=== PATIENT | female | born 1975 | race Caucasian/White ===

== ENCOUNTER 2017-01-31 21:29 | Emergency (ER) | payer OTHER ==
[~2017-01-31 21:29] MED LIST: ALLEGRA 180MG180 MG PO; ANTIVERT 25MG25 MG PO; CIPRO 250MG TA250 MG PO; CLARITIN; COUMADIN 77.5 MG/TAB PO; FLONASE NASAL S16 GM NS; LORTAB 5/500 501 TAB PO; MUCINEX 60600 MG/TAB PO; NO HOME MEDICATIONS; PERCOCET 325 MG1 TA2 PO; PERCOCET 5/321 UDTAB PO; PHENERGAN 25 TA25 MG PO; PHENERGAN25 MG RC; PRIL40; ROXICODONE 55 MG/TAB PO; SINGULAIR 110 MG/TAB PO; SPRINTEC 35 MCG1 TAB PO; TYLENOL 500MG500 MG PO; ULTRAM 50MG TAB50 MG PO; [UNRECOGNIZED DRUG - OTHER]; [UNRECOGNIZED DRUG - REMARK]
[2017-01-31 21:31] VITALS: TEMP 96.8
[2017-01-31 22:07] LABS: BASO % 0.4 % (0.0-2.0); EOS # 0.3 (0.0-0.7); EOS % 2.5 % (0-4.0); GRAN % 62.3 % (42.2-75.2); HEMOGLOBIN 12.2 g/dl (12.5-16.0); LYMPH # 3.4 (1.2-3.4); LYMPH % 30.1 % (20.0-51.0); MEAN CELL VOLUME 90 fl (80.0-100.0); MEAN CORPUSCULAR HEMOGLOBIN 29 pg (27.0-31.0); MEAN CORPUSCULAR HGB CONC 32 g/dl (33.0-37.0); MEAN PLATELET VOLUME 10.1 fl (7.4-10.4); MONO # 0.5 (0.1-0.6); MONO % 4.5 % (1.7-9.3); PLATELET COUNT 353 K/mm3 (130-400); RED BLOOD COUNT 4.21 M/mm3 (4.10-5.30); REDCELL DISTRIBUTION WIDTH-CV 14.3 % (11.5-14.5); WHITE BLOOD COUNT 11.2 K/mm3 (4.8-10.8)
[2017-01-31 22:16] LABS: ALANINE AMINOTRANSFERASE 34 U/L (9-52); ALBUMIN 4.1 gm/dL (3.5-5.0); ALKALINE PHOSPHATASE 72 U/L (50-136); ANION GAP 12 mmol/L (7-16); BILIRUBIN,TOTAL 0.3 mg/dL (0.0-1.0); BLOOD UREA NITROGEN 14 mg/dL (7-17); CALCIUM 9.1 mg/dL (8.4-10.2); CARBON DIOXIDE 21 mmol/L (22-30); CHLORIDE 105 mmol/L (98-107); CREATININE, serum 0.85 mg/dL (0.52-1.25); GLUCOSE 106 mg/dL (74-106); LIPASE 64 U/L (23-300); POTASSIUM 3.8 mmol/L (3.4-5.0); SODIUM 139 mmol/L (137-145); TOTAL PROTEIN 7.4 gm/dL (6.4-8.2)
[2017-01-31 22:20] LABS: PH 5 (5-8); SQUAMOUS EPITHELIAL 0-2 /hpf; URINE APPEARANCE Clear; URINE BACTERIA None Seen /hpf; URINE BILIRUBIN Negative (NEGATIVE); URINE BLOOD 1+ (NEGATIVE); URINE COLOR Straw; URINE GLUCOSE Negative (NEGATIVE); URINE KETONE Negative (NEGATIVE); URINE RBC 0-2 /hpf; URINE UROBILINOGEN Negative (NEGATIVE); URINE WBC 0-2 /hpf
[2017-01-31 22:24] LABS: INFLUENZA B NEGATIVE
[2017-01-31 22:30] LABS: TROPONIN-I < 0.012 ng/mL (0.000-0.034)
[2017-02-01 00:01] LABS: INR 1.8 (0.8-3.0); PROTHROMBIN TIME 20.4 SECONDS (9.7-12.8)
[2017-02-01 00:39] VITALS: BP 129/72; PULSE 67
== END 2017-02-01 00:38 | disposition home or self-care (01) ==
LOC: COL.ER 21:29
PROVIDERS: Emergency Medicine
DX: J06.9 Acute upper respiratory infection, unspecified (principal); R55 Syncope and collapse; E11.9 Type 2 diabetes mellitus without complications; J45.909 Unspecified asthma, uncomplicated; Z86.718 Personal history of other venous thrombosis and embolism; Z79.84 Long term (current) use of oral hypoglycemic drugs; Z79.01 Long term (current) use of anticoagulants
CPT/HCPCS: J2405; J7030

== ENCOUNTER → 2017-07-03 | Outpatient (CLI) | payer OTHER | LOC: MC.RAD 07:36 | DX: N64.4 Mastodynia (principal) ==

== ENCOUNTER 2017-11-30 21:53 | Emergency (ER) | payer OTHER ==
[~2017-11-30] VITALS: Ht 162.6 cm; Wt 104.8 kg
[2017-11-30 22:02] VITALS: TEMP 97.8
[2017-11-30 22:51] LABS: BASO # 0.1 (0.0-0.2); BASO % 0.6 % (0.0-2.0); EOS # 0.2 (0.0-0.7); GRAN # 6.3 (1.4-6.5); GRAN % 57.8 % (42.2-75.2); HEMATOCRIT 35.9 % (37.0-47.0); HEMOGLOBIN 11.9 g/dl (12.5-16.0); LYMPH # 3.7 (1.2-3.4); LYMPH % 33.8 % (20.0-51.0); MEAN CELL VOLUME 86 fl (80.0-100.0); MEAN CORPUSCULAR HEMOGLOBIN 28 pg (27.0-31.0); MEAN CORPUSCULAR HGB CONC 33 g/dl (33.0-37.0); MEAN PLATELET VOLUME 10.3 fl (7.4-10.4); MONO # 0.6 (0.1-0.6); MONO % 5.3 % (1.7-9.3); PLATELET COUNT 358 K/mm3 (130-400); REDCELL DISTRIBUTION WIDTH-CV 13.9 % (11.5-14.5)
[2017-11-30 22:55] LABS: INR 2.3 (0.8-3.0); PROTHROMBIN TIME 26.6 SECONDS (9.7-12.8)
[2017-11-30 22:57] LABS: PARTIAL THROMBOPLASTIN TIME 34.3 SECONDS (26.0-37.0)
[2017-11-30 22:58] LABS: D-DIMER < 200.00 ng/mLDDu (200-230)
[2017-11-30 23:02] LABS: ALANINE AMINOTRANSFERASE 49 U/L (9-52); ALBUMIN 3.9 gm/dL (3.5-5.0); ALKALINE PHOSPHATASE 65 U/L (50-136); ANION GAP 12 mmol/L (7-16); AST,SGOT 38 U/L (15-37); BILIRUBIN,TOTAL 0.2 mg/dL (0.0-1.0); BLOOD UREA NITROGEN 11 mg/dL (7-17); CALCIUM 8.6 mg/dL (8.4-10.2); CARBON DIOXIDE 24 mmol/L (22-30); CHLORIDE 103 mmol/L (98-107); CREATININE, serum 0.76 mg/dL (0.52-1.25); GLUCOSE 98 mg/dL (74-106); SODIUM 139 mmol/L (137-145); TOTAL PROTEIN 7.1 gm/dL (6.4-8.2)
[2017-11-30 23:13] LABS: TROPONIN-I < 0.012 ng/mL (0.000-0.034)
[2017-12-01] MEDS ORDERED: K-DUR20 MEQ PO (00:14)
[2017-12-01 00:25] VITALS: BP 105/54; PULSE 63
== END 2017-12-01 00:26 | disposition home or self-care (01) ==
LOC: COL.ER 21:53
PROVIDERS: Emergency Medicine
DX: M79.605 Pain in left leg (principal); R07.89 Other chest pain; R55 Syncope and collapse; R05 Cough; E11.9 Type 2 diabetes mellitus without complications; J45.909 Unspecified asthma, uncomplicated; F32.9 Major depressive disorder, single episode, unspecified; F90.9 Attention-deficit hyperactivity disorder, unspecified type; D68.51 Activated protein C resistance; Z86.718 Personal history of other venous thrombosis and embolism; Z79.891 Long term (current) use of opiate analgesic; Z79.01 Long term (current) use of anticoagulants
CPT/HCPCS: J2405; J7030

== ENCOUNTER → 2018-01-16 | Outpatient (CLI) | payer OTHER ==
[~2018-01-16] MED LIST changes: +K-DUR20 MEQ PO
== END ==
LOC: COL.CARD 09:39
DX: R55 Syncope and collapse (principal)

== ENCOUNTER 2018-01-21 14:34 | Emergency (ER) | payer OTHER ==
[~2018-01-21] VITALS: Ht 162.6 cm; Wt 118.2 kg
[2018-01-21 14:35] VITALS: TEMP 97.6
[2018-01-21 14:52] LABS: BASO # 0.1 (0.0-0.2); BASO % 0.6 % (0.0-2.0); EOS # 0.4 (0.0-0.7); EOS % 3.2 % (0-4.0); GRAN # 6.3 (1.4-6.5); GRAN % 57.7 % (42.2-75.2); HEMOGLOBIN 11.8 g/dl (12.5-16.0); LYMPH # 3.6 (1.2-3.4); LYMPH % 33.1 % (20.0-51.0); MEAN CELL VOLUME 89 fl (80.0-100.0); MEAN CORPUSCULAR HEMOGLOBIN 29 pg (27.0-31.0); MEAN CORPUSCULAR HGB CONC 32 g/dl (33.0-37.0); MEAN PLATELET VOLUME 10.5 fl (7.4-10.4); MONO # 0.6 (0.1-0.6); MONO % 5.1 % (1.7-9.3); PLATELET COUNT 321 K/mm3 (130-400); RED BLOOD COUNT 4.13 M/mm3 (4.10-5.30)
[2018-01-21 14:59] LABS: ALANINE AMINOTRANSFERASE 46 U/L (9-52); ALKALINE PHOSPHATASE 69 U/L (50-136); ANION GAP 15 mmol/L (7-16); AST,SGOT 60 U/L (15-37); BILIRUBIN,TOTAL 0.3 mg/dL (0.0-1.0); BLOOD UREA NITROGEN 10 mg/dL (7-17); CALCIUM 8.5 mg/dL (8.4-10.2); CARBON DIOXIDE 19 mmol/L (22-30); CHLORIDE 104 mmol/L (98-107); CREATININE, serum 0.82 mg/dL (0.52-1.25); GLUCOSE 113 mg/dL (74-106); INR 1.8 (0.8-3.0); POTASSIUM 3.7 mmol/L (3.4-5.0); SODIUM 139 mmol/L (137-145); TOTAL PROTEIN 7.5 gm/dL (6.4-8.2)
[2018-01-21 15:01] LABS: PARTIAL THROMBOPLASTIN TIME 44.3 SECONDS (26.0-37.0)
[2018-01-21 15:03] LABS: HEMATOCRIT 36.9 % (37.0-47.0)
[2018-01-21] MEDS ORDERED: TOPAMAX50 MG PO (15:07)
[2018-01-21] MEDS ORDERED: GLUCOPHAGE XR500 M1 PO (15:07)
[2018-01-21] MEDS ORDERED: LASIX 40MG TABL40 MG PO (15:08)
[2018-01-21] MEDS ORDERED: RITALIN LA20 MG PO (15:08)
[2018-01-21] MEDS ORDERED: MIDAMOR 5MG TAB5 MG PO (15:08)
[2018-01-21] MEDS ORDERED: ZOFRAN 4MG T4 MG/TAB PO (15:09)
[2018-01-21] MEDS ORDERED: ANTIVERT 12.512.5 MG PO (15:10)
[2018-01-21] MEDS ORDERED: PROAIR HFA0.09 MG/AC IH (15:10)
[2018-01-21] MEDS ORDERED: ADVIL200 MG PO (15:11)
[2018-01-21 15:14] LABS: TROPONIN-I < 0.012 ng/mL (0.000-0.034)
[2018-01-21 17:13] VITALS: BP 111/62; PULSE 61
== END 2018-01-21 17:22 | disposition home or self-care (01) ==
LOC: COL.ER 14:34
PROVIDERS: Family Medicine
DX: R07.89 Other chest pain (principal); R55 Syncope and collapse; E11.9 Type 2 diabetes mellitus without complications; J45.909 Unspecified asthma, uncomplicated; Z86.2 Personal history of diseases of the blood and blood-forming organs and certain disorders involving the immune mechanism; Z79.51 Long term (current) use of inhaled steroids; Z79.01 Long term (current) use of anticoagulants; Z79.84 Long term (current) use of oral hypoglycemic drugs
CPT/HCPCS: J0595; J2060

== ENCOUNTER 2018-02-22 08:04 | Outpatient (CLI) | payer OTHER ==
[~2018-02-22] VITALS: Ht 162.7 cm; Wt 117.7 kg
[~2018-02-22 08:04] MED LIST changes: +ADVIL200 MG PO; +ANTIVERT 12.512.5 MG PO; +COUMADIN 1010 MG/TAB PO; -COUMADIN 77.5 MG/TAB PO; +GLUCOPHAGE XR500 M1 PO; +LASIX 40MG TABL40 MG PO; +MIDAMOR 5MG TAB5 MG PO; +PROAIR HFA0.09 MG/AC IH; +RITALIN LA20 MG PO; +TOPAMAX50 MG PO; +ZOFRAN 4MG T4 MG/TAB PO
[2018-02-22] MEDS ORDERED: ALDACTONE 25MG25 M1 PO (09:07)
[2018-02-22] MEDS ORDERED: RITALIN 20M20 MG/TAB PO (09:09)
[2018-02-22] MEDS ORDERED: K-DUR20 MEQ PO (09:10)
[2018-02-22] MEDS ORDERED: TOPAMAX50 MG PO (09:11)
[2018-02-22] MEDS ORDERED: MULTIPLE VITAMI1 CAP PO (09:12)
[2018-02-22] MEDS ORDERED: MAG-OX 400400 MG/TAB PO (09:12)
[2018-02-22] MEDS ORDERED: ALLEGRA ALLERG180 MG PO (09:12)
[2018-02-22] MEDS ORDERED: EPIPEN 2-PAK1 MG/ML IM (09:13)
[2018-02-22 09:44] VITALS: BP 125/58; PULSE 58; TEMP 97.8
[2018-02-22] MEDS ORDERED: CLEOCIN HCL300 MG PO (11:21)
[2018-02-22 12:00] VITALS: BP 147/89; PULSE 74
== END 2018-02-22 13:29 | disposition home or self-care (01) ==
LOC: COL.CAR 08:04
DX: R55 Syncope and collapse (principal); F90.9 Attention-deficit hyperactivity disorder, unspecified type; D68.51 Activated protein C resistance; Z79.01 Long term (current) use of anticoagulants; Z90.49 Acquired absence of other specified parts of digestive tract; Z88.0 Allergy status to penicillin; Z88.1 Allergy status to other antibiotic agents; Z88.8 Allergy status to other drugs, medicaments and biological substances; Z79.84 Long term (current) use of oral hypoglycemic drugs; Z86.718 Personal history of other venous thrombosis and embolism; Z86.711 Personal history of pulmonary embolism

== ENCOUNTER 2018-04-05 07:56 | Outpatient (CLI) | payer OTHER ==
[~2018-04-05] VITALS: Ht 162.7 cm; Wt 118.0 kg
[~2018-04-05 07:56] MED LIST changes: +ALDACTONE 25MG25 M1 PO; +ALLEGRA ALLERG180 MG PO; +CLEOCIN HCL300 MG PO; +EPIPEN 2-PAK1 MG/ML IM; +MAG-OX 400400 MG/TAB PO; +MULTIPLE VITAMI1 CAP PO; +RITALIN 20M20 MG/TAB PO
[2018-04-05 09:19] VITALS: BP 119/70; PULSE 57; TEMP 98.1
[2018-04-05 12:25] VITALS: BP 106/64; BP 120/60; PULSE 56; PULSE 62
== END 2018-04-05 12:47 | disposition home or self-care (01) ==
LOC: COL.CAR 07:56
DX: R55 Syncope and collapse (principal); F90.9 Attention-deficit hyperactivity disorder, unspecified type; E11.9 Type 2 diabetes mellitus without complications; J45.909 Unspecified asthma, uncomplicated; Z79.01 Long term (current) use of anticoagulants; Z79.84 Long term (current) use of oral hypoglycemic drugs; Z88.1 Allergy status to other antibiotic agents; Z88.6 Allergy status to analgesic agent; Z91.018 Allergy to other foods; Z91.010 Allergy to peanuts; Z90.49 Acquired absence of other specified parts of digestive tract; Z86.711 Personal history of pulmonary embolism; Z86.718 Personal history of other venous thrombosis and embolism

== ENCOUNTER 2018-05-13 10:16 | Emergency (ER) | payer OTHER ==
[~2018-05-13] VITALS: Ht 162.6 cm; Wt 118.2 kg
[~2018-05-13 10:16] MED LIST changes: -PRIL40; +PRIL40 PO
[2018-05-13 10:27] VITALS: BP 146/76; TEMP 97.8
[2018-05-13 11:25] VITALS: PULSE 57
== END 2018-05-13 11:28 | disposition home or self-care (01) ==
LOC: COL.ER 10:16
DX: S83.92XA Sprain of unspecified site of left knee, initial encounter (principal); Z79.01 Long term (current) use of anticoagulants; Z86.718 Personal history of other venous thrombosis and embolism; Z86.711 Personal history of pulmonary embolism; X50.0XXA Overexertion from strenuous movement or load, initial encounter; Y92.009 Unspecified place in unspecified non-institutional (private) residence as the place of occurrence of the external cause
CPT/HCPCS: L1846

== ENCOUNTER → 2018-05-29 | Outpatient (CLI) | payer OTHER | LOC: COL.RAD 09:00 | DX: M22.42 Chondromalacia patellae, left knee (principal); M25.462 Effusion, left knee ==

== ENCOUNTER 2018-07-20 15:35 | Outpatient (RCR) | payer OTHER | END 2018-10-18 | LOC: MKS.ESL.PT | DX: M25.562 Pain in left knee (principal) ==

== ENCOUNTER → 2018-10-01 | Outpatient (CLI) | payer OTHER | LOC: COL.RAD 12:30 | DX: G43.009 Migraine without aura, not intractable, without status migrainosus (principal); R55 Syncope and collapse | CPT/HCPCS: A9585 ==

== ENCOUNTER → 2018-11-07 | Outpatient (CLI) | payer OTHER | LOC: COL.CARD 09:42 | DX: R55 Syncope and collapse (principal); G43.909 Migraine, unspecified, not intractable, without status migrainosus ==

== ENCOUNTER → 2019-01-30 | Outpatient (CLI) | payer OTHER | LOC: COL.VAS 10:36 | DX: R55 Syncope and collapse (principal) ==

== ENCOUNTER 2019-06-15 18:21 | Emergency (ER) | payer OTHER ==
[~2019-06-15] VITALS: Ht 162.6 cm; Wt 119.1 kg
[2019-06-15 18:25] VITALS: TEMP 97
[2019-06-15 19:00] LABS: BASO % 0.3 % (0.0-2.0); EOS # 0.2 (0.0-0.7); EOS % 2.6 % (0-4.0); GRAN # 4.6 (1.4-6.5); GRAN % 53.3 % (42.2-75.2); HEMATOCRIT 39.2 % (37.0-47.0); HEMOGLOBIN 12.5 g/dl (12.5-16.0); LYMPH # 3.2 (1.2-3.4); LYMPH % 37.2 % (20.0-51.0); MEAN CELL VOLUME 90 fl (80.0-100.0); MEAN CORPUSCULAR HEMOGLOBIN 29 pg (27.0-31.0); MEAN CORPUSCULAR HGB CONC 32 g/dl (33.0-37.0); MEAN PLATELET VOLUME 10.7 fl (7.4-10.4); MONO # 0.5 (0.1-0.6); MONO % 6.3 % (1.7-9.3); PLATELET COUNT 341 K/mm3 (130-400); RED BLOOD COUNT 4.34 M/mm3 (4.10-5.30); REDCELL DISTRIBUTION WIDTH-CV 13.9 % (11.5-14.5)
[2019-06-15 19:15] LABS: INR 2.5 (0.8-3.0); PROTHROMBIN TIME 30.6 SECONDS (9.7-12.8)
[2019-06-15 19:17] LABS: ALANINE AMINOTRANSFERASE 38 U/L (9-52); ALBUMIN 3.9 gm/dL (3.5-5.0); ALKALINE PHOSPHATASE 82 U/L (50-136); ANION GAP 13 mmol/L (7-16); AST,SGOT 42 U/L (15-37); BILIRUBIN,TOTAL 0.2 mg/dL (0.0-1.0); BLOOD UREA NITROGEN 13 mg/dL (7-17); CARBON DIOXIDE 20 mmol/L (22-30); CHLORIDE 109 mmol/L (98-107); CREATININE, serum 0.75 (0.52-1.25); GLUCOSE 138 mg/dL (74-106); POTASSIUM 3.8 mmol/L (3.4-5.0); SODIUM 142 mmol/L (137-145)
[2019-06-15 19:18] LABS: PARTIAL THROMBOPLASTIN TIME 49.1 SECONDS (26.0-37.0)
[2019-06-15 19:23] LABS: D-DIMER < 200.00 ng/mLDDu (200-230)
[2019-06-15 19:28] LABS: TROPONIN-I < 0.012 ng/mL (0.000-0.035)
[2019-06-15 19:55] VITALS: BP 133/78; PULSE 65
== END 2019-06-15 19:55 | disposition home or self-care (01) ==
LOC: COL.ER 18:21
PROVIDERS: Family Medicine
DX: R20.2 Paresthesia of skin (principal); Z79.01 Long term (current) use of anticoagulants

== ENCOUNTER → 2019-09-16 | Outpatient (CLI) | payer OTHER | LOC: COL.RAD 13:51 | DX: M47.816 Spondylosis without myelopathy or radiculopathy, lumbar region (principal) ==

== ENCOUNTER → 2019-12-26 | Outpatient (CLI) | payer OTHER | LOC: COL.RAD 08:15 | DX: M47.812 Spondylosis without myelopathy or radiculopathy, cervical region (principal); G43.109 Migraine with aura, not intractable, without status migrainosus ==

== ENCOUNTER → 2021-12-21 | Outpatient (CLI) | payer BC | LOC: COL.RAD 14:24 | DX: G43.909 Migraine, unspecified, not intractable, without status migrainosus (principal) | CPT/HCPCS: A9575 ==